=== PATIENT | female | born 1955 | race Two or more races ===

== ENCOUNTER 2023-10-13 10:10 | Day surgery (SDC) | payer MEDICARE ==
[2023-10-13] VITALS (8 sets, daily range): BP systolic 117–166; BP diastolic 64–88; PULSE 56–77; RESP 12–20; TEMP 97.3; O2SAT 95–98
[~2023-10-13] VITALS: Ht 162.6 cm; Wt 68.2 kg
[~2023-10-13 10:10] MED LIST: FENO54TA PO; LOSA-415 PO; SIMV10TA98 PO
[2023-10-13] MEDS ORDERED: NAPR220T67 PO (11:03)
[2023-10-13] MEDS ORDERED: LOSA25TA41 PO (11:03)
[2023-10-13] MEDS ORDERED: METO-395 PO (11:03)
[2023-10-13] MEDS ORDERED: CALC-225 PO (11:03)
[2023-10-13] MEDS ORDERED: ASPI-611 PO (11:03)
[2023-10-13] MEDS ORDERED: HYDR12.55 PO (11:03)
[2023-10-13] MEDS ORDERED: MAGN100T5 PO (11:03)
[2023-10-13] MEDS ORDERED: POTA8CAP20 PO (11:03)
[2023-10-13] MEDS ORDERED: ATOR20TA66 PO (11:03)
[2023-10-13] MEDS ORDERED: CHOL100046 PO (11:03)
[2023-10-13] MEDS: diphenhydrAMINE 25mg capsule PO PRN (11:15)
[2023-10-13] MEDS: normal saline 1,000 ML IV SCH (11:15)
[2023-10-13] MEDS: LORazepam 0.5 MG tablet PO PRN (11:15)
[2023-10-13 11:36] LABS: BASOPHILS % (AUTO) 0.6 % (0-1); EOSINOPHILS # (AUTO) 0.1 X10'3 (0-0.9); EOSINOPHILS % (AUTO) 2.1 % (0-6); HEMATOCRIT 43.9 % (35.0-45.0); HEMOGLOBIN 14.6 g/dl (12.0-16.0); LYMPHOCYTES # (AUTO) 1.5 X10'3 (1.1-4.8); LYMPHOCYTES % (AUTO) 31.1 % (21-51); MEAN CORPUSCULAR HGB CONC 33.3 g/dL (33.0-36.5); MEAN CORPUSCULAR VOLUME 86.9 FL (78-98); MEAN PLATELET VOLUME 9.4 FL (7.4-10.4); MONOCYTES # (AUTO) 0.5 X10'3 (0-0.9); MONOCYTES % (AUTO) 9.7 % (2-12); NEUTROPHILS # (AUTO) 2.7 X10'3 (1.8-7.7); NEUTROPHILS % (AUTO) 56.5 % (42-75); PLATELET COUNT 155 X10'3 (140-440); RED BLOOD COUNT 5.05 X10'6 (4.20-5.60); RED CELL DISTRIBUTION WIDTH 15.2 % (11.5-14.5); WHITE BLOOD COUNT 4.9 X10'3 (4.5-11.0)
[2023-10-13 11:45] LABS: PROTHROMBIN TIME 10.7 SECONDS (9.0-12.0)
[2023-10-13] MEDS ORDERED: midazolam 1 mg/ML 2ml injection ONE (11:53)
[2023-10-13] MEDS ORDERED: iohexol 350MG/ML 100ml bottle IV ONE (11:53)
[2023-10-13] MEDS ORDERED: heparin 1,000unit/ml 10ml vial 10 ML ONE (11:53)
[2023-10-13] MEDS ORDERED: fentaNYL/PF 50MCG/1 ML 2ML syringe ONE (11:53)
[2023-10-13] MEDS ORDERED: verapamil 2.5 mg/ml inj IV ONE (11:53)
[2023-10-13] MEDS ORDERED: LIDOcaine 1% (10mg/ml) 2ml vial ONE (11:53)
[2023-10-13] MEDS ORDERED: nitroGLYCERIN 500mcg/5mL D5W 5 ML IV ONE (11:54)
[2023-10-13 11:55] LABS: ALBUMIN 3.8 G/DL (3.4-5.0); ANION GAP 10 (8-16); BLOOD UREA NITROGEN 9 MG/DL (7-18); CALCIUM 8.4 MG/DL (8.5-10.1); CHLORIDE 107 MMOL/L (99-107); CHOL/HDL RATIO 3.6 (0.00-4.99); CHOLESTEROL 168 MG/DL (0-200); CREATININE 0.82 MG/DL (0.40-0.90); GLUCOSE 105 MG/DL (70-104); HDL CHOLESTEROL 47 MG/DL (35-60); LDL CHOLESTEROL 91 MG/DL (50-100); POTASSIUM 3.3 MMOL/L (3.5-5.1); SODIUM 145 MMOL/L (135-145); TOTAL CARBON DIOXIDE 27.6 MMOL/L (24-32); TRIGLYCERIDES 165 MG/DL (20-135); eCRCL 56 ML/MIN; eGFR 69 ML/MIN
[2023-10-13] MEDS ORDERED: LIDOcaine 1% 30ml preserv. free vial ONE (13:08)
[2023-10-13] MEDS: potassium Cl 20 mEq SR tablet PO STA (14:14)
[2023-10-13] MEDS ORDERED: HYDROcodone/acetaminophen 10/325mg tab PO PRN (14:25)
[2023-10-13] MEDS ORDERED: HYDROcodone/acetaminophen 5mg/325mg tablet PO PRN (14:25)
== END 2023-10-13 15:39 | disposition home or self-care (01) ==
LOC: SSTAY O 10:10
PROVIDERS: ATTEND Student in an Organized Health Care Education/Training Program
DX: R07.9 Chest pain, unspecified (principal); I25.10 Atherosclerotic heart disease of native coronary artery without angina pectoris; I10 Essential (primary) hypertension; E78.00 Pure hypercholesterolemia, unspecified; Z79.82 Long term (current) use of aspirin; Z79.899 Other long term (current) drug therapy; Z88.8 Allergy status to other drugs, medicaments and biological substances
CPT/HCPCS: 36415; 76937; 80048; 80061; 85025; 85610; 93005; 93458; 99152; 99153; J1644; J2250; J3010; J3490; J7030; Q0163; Q9967; A6258; C1760; C1894